=== PATIENT | male | born 1995 | race Caucasian/White ===

== ENCOUNTER 2025-05-17 15:22 | Outpatient (REF) | payer SELFPAY ==
--- NOTE | 2025-05-17 16:02 | DI.RAD_ITS ---
Exam(s) XR HIP LT COMPLETE AP PELVIS EXAM: XR HIP LT COMPLETE AP PELVIS CLINICAL HISTORY: Left hip pain M25.552. TECHNIQUE: 2D digital imaging was performed. COMPARISON: No exams were available for comparison FINDINGS: Two views There is no evidence of pelvic nor hip fractures. Additional frog-lateral view of the left hip appears unremarkable. Bone density is normal. No significant osseous lesions. No degenerative changes in the hips. No evidence of cam-type JUAN. Sacroiliac joints unremarkable. IMPRESSION: No significant osseous findings in the pelvis and hips. DATA REPOSITORY: RADIATION DOSE DELIVERED:
--- NOTE | 2025-05-17 17:49 | DI.VRAD_ITS ---
PROCEDURE INFORMATION: Exam: XR Left Hip Exam date and time: 05/17/2025 16:01 Age: 29 years old Clinical indication: Left hip pain [id number], no injury. TECHNIQUE: Imaging protocol: Radiologic exam of the left hip. Views: 2 or 3 views hip with pelvis when performed. COMPARISON: No relevant prior studies available. FINDINGS: Bones/joints: No acute fracture or subluxation on one view of the hip. Minimal joint space narrowing Soft tissues: Prominent subcutaneous fat. IMPRESSION: No acute fracture or subluxation on one view of the hip. Dictated and Authenticated by: Veronica Mark MD. Orderin Jessie Crabtree MD
== END 2025-05-17 15:42 ==
LOC: DI 15:22
PROVIDERS: Visit Provider Physician Assistant Medical
DX: M25.552 Pain in left hip (principal)
CPT/HCPCS: 73502